=== PATIENT | female | born 1975 | race Caucasian/White ===

== ENCOUNTER 2024-01-01 21:01 | Emergency (ER) | payer OTHER, SELFPAY ==
[2024-01-01 21:03] VITALS: BP 133/66
[2024-01-01 21:18] VITALS: BP 121/70
[2024-01-01] MEDS: ZOFRAN ODT (ORALLY DISINTEGRATING) 4 MG PO (21:18)
[2024-01-01 21:19] VITALS: BMI 24.2
--- NOTE | 2024-01-01 21:36 | ED.GENMED ---
History of Present Illness
General
Chief Complaint: Head Injury
Source: patient and spouse
Exam Limitations: none
Time Seen by Provider: 01/01/24 21:13
Nursing documentation reviewed up to this point in time: agreed with
History of Present Illness
History of Present Illness:
48-year-old female with a past medical history of MS who presents to the emergency room with her for evaluation after head trauma. Patient reports that she has issues with spasticity in her legs; she was attempting to sit down in a chair
this afternoon around 4 PM and she says that she was not lined up correctly and when she went to sit she missed the chair and fell onto her bottom. She says that her son was trying to help her up but she ultimately lost her balance and fell
backwards again and hit her head on a cabinet. She did not lose consciousness. She says she had a mild headache at first which she treated with Advil and she felt a bit better but later on in the evening when she went for dinner she started to
have worsening headache, nausea and dry heaving and so she came to the emergency room for assessment. In addition to headache and nausea/vomiting she also reports some photosensitivity. She denies any neck pain. Denies any back pain. Denies any
pain in her extremities specifically denies pain in her tailbone and hips. Denies any chest or abdominal pain. She is not on any blood thinners.
Past History
Past History
ED Past Medical History: Other (MS)
Social History
Personal:
Review of Systems
Review of Systems
All Other Systems: ROS reviewed and negative except as documented in HPI and ROS
Respiratory: Denies trouble breathing
Cardiac: Denies chest pain
ABD/GI: Reports nausea and vomiting; Denies abdominal pain
: Denies flank pain
Musculoskeletal: Denies neck pain or back pain
Neurological: Reports headache; Denies dizzy
Phy Exam
Physical Exam
Physical Exam:
General: Awake, alert, oriented x3; sitting in bed holding emesis bag
Head: Normocephalic, atraumatic�no cephalohematoma, abrasions or lacerations appreciable
Eyes: Conjunctiva normal, EOMI, pupils equal round reactive to light bilaterally
Throat: Airway intact, handling secretions
Neck: Trachea midline, supple without meningismus, no cervical spine tenderness
Lungs: Breathing comfortably no distress
Heart: Regular rate
Back: No tenderness in the thoracic or lumbar spine, no tenderness over the coccyx, no signs of trauma to the back or flank
Neuro: Awake and alert with GCS 15
Extremities: Atraumatic, bilateral lower extremity edema, extremities are warm and well-perfused; no reproducible tenderness in the extremities and she allows for passive range of motion in the upper and lower extremities without discomfort
Scores
Heart Failure Risk
Heart Failure Risk Score: Not Applicable
Heart Score for Chest Pain Patients
STEMI patient?: Not applicable
Withdrawal Assessment of Alcohol
Withdrawal Assessment Completed?: Not applicable
Course
Orders/Labs/Results
Orders:
Orders
01/01/24 21:08
CT Head W/o Iv Contrast Urgent
Comment:
Reason For Exam: head injury today with N/V
01/01/24 21:13
Ondansetron Orally Disint [Zofran Odt (Orally Disintegrating)] 4 mg PO NOW STA
01/01/24 21:14
CT Cervical Spine W/o Iv Contr Urgent
Comment:
Reason For Exam: headache, N/V s/p fall with head trauma
01/01/24 21:35
IV Insert/Care/Rem.- Treatment PRN
0.9% Sodium Chloride 500 ml [Nss] 500 ml IV BOLUS
Vital Signs
Initial and Last Documented VS:
Initial Vital Signs
Pulse Resp BP Pulse Ox
71 18 133/66 99
01/01/24 21:03 01/01/24 21:03 01/01/24 21:03 01/01/24 21:03
Last Documented Vital Signs
Pulse Resp BP Pulse Ox
93 14 121/70 99
01/01/24 21:18 01/01/24 21:18 01/01/24 21:18 01/01/24 21:03
MDM/Problems Addressed
Differential Diagnosis Includes:
Concussion, subdural hemorrhage/intracranial hemorrhage
MDM/Problems Addressed:
48-year-old female presents with headache, nausea and vomiting since head trauma at 4 PM. Had a fall from standing, fell backwards and hit a cabinet. No other serious injuries. Vital signs and exam as above. Plan to treat symptomatically with
Zofran. Will send for CT head and cervical spine. Will reassess after the above.
Patient still feeling nauseous after Zofran ODT after place an IV and provide some IV fluids and IV antiemetic.
Chronic conditions affecting care:
MS contributed to fall
*Radiology
Radiology exam reviewed: radiology read reviewed
*Pulse Oximetry
Patient hypoxic: no
*Critical Care Note
Total Time (30-74mins, 75-104mins- exclusive of procedures): Not Applicable
Data Reviewed
Source: patient and spouse
ED Attending Note
-
Portions of this chart may have been created with voice recognition software.� Occasional wrong word or��sound alike� substitutions may have occurred due to the inherent limitations of voice recognition software.
Discharge Plan
Departure
Prescriptions:
No Action
prednisone 50 MG tablet
50 mg PO DAILY Qty: 3 0RF
Referrals:
UNKNOWN - PT DOES,NOT KNOW [Family Provider] -
Interventions
Interventions:
ED- Fall Risk Assessment Last Done: 01/01/24 21:23
ED- Neurological Assessment Last Done: 01/01/24 21:23
ED-Skin Assessment Last Done: 01/01/24 21:23
Discharge Date and Time
Print Language: [id number]
[2024-01-01 22:00] VITALS: BP 114/65
[2024-01-01] MEDS: NSS 500 IV (22:00)
[2024-01-01 23:25] VITALS: BP 106/59
[2024-01-01 23:43] VITALS: BP 106/59
== END 2024-01-01 23:44 | disposition home or self-care (01) ==
LOC: EMR 21:01
PROVIDERS: EMERGENCY PHYSICIAN Emergency Medicine; FAMILY PHYSICIAN Family Medicine
DX: S06.0X0A Concussion without loss of consciousness, initial encounter (principal); W22.03XA Walked into furniture, initial encounter
CPT/HCPCS: 99284; 96374; 96361; 70450; 72125

== ENCOUNTER → 2024-06-20 11:16 | Outpatient (REF) | payer OTHER, SELFPAY | LOC: PAVMRI 11:16 | PROVIDERS: ATTENDING PHYSICIAN Nurse Practitioner; FAMILY PHYSICIAN Family Medicine | DX: G35 Multiple sclerosis (principal) | CPT/HCPCS: 72157; A9575 ==

== ENCOUNTER → 2024-06-25 18:32 | Outpatient (REF) | payer OTHER, SELFPAY | LOC: MRI 18:32 | PROVIDERS: ATTENDING PHYSICIAN Nurse Practitioner; FAMILY PHYSICIAN Family Medicine | DX: G35 Multiple sclerosis (principal) | CPT/HCPCS: 70553; 72156; A9575 ==